=== PATIENT | male | born 1950 | race Caucasian/White ===

== ENCOUNTER 2018-11-03 06:40 | Day surgery (SDC) | payer OTHER ==
[2018-11-02 14:58] LABS: BASOPHILS % (AUTO) 0.9 % (0.0-5.0); EOSINOPHILS % (AUTO) 5.1 % (0.0-8.0); HEMATOCRIT 35.7 % (42-54); MEAN CORPUSCULAR HEMOGLOBIN 33.5 pg (27.0-33.0); MEAN CORPUSCULAR HGB CONC 34.3 g/dL (32.0-36.0); MEAN CORPUSCULAR VOLUME 97.8 fL (79-99); MONOCYTES % (AUTO) 10.5 % (3.0-13.0); NEUTROPHILS % (AUTO) 57.5 % (40.0-77.0); NUCLEATED RED BLOOD CELLS 0.1 % (0.0-0.19); PLATELET COUNT (AUTO) 228 K/uL (130-400); RED BLOOD CELL COUNT(AUTO) 3.65 MIL/uL (4.50-6.20); RED CELL DISTRIBUTION WIDTH 13.7 % (11.0-15.5); WHITE BLOOD COUNT (AUTO) 5.5 K/uL (4.8-10.8)
[2018-11-02 15:00] VITALS: BP 122/60
[~2018-11-03] VITALS: Ht 170.2 cm; Wt 87.5 kg
[2018-11-03] VITALS (16 sets, daily range): BP systolic 97–123; BP diastolic 54–80
[~2018-11-03 06:40] MED LIST: ACET-66 PO; AEC81 PO; ATOR10TA69 PO; CETI10TA57 PO; GABA600T10 PO; LISI10TA7 PO; LORA1TAB3 PO; LORA2TAB2 PO; METO50TA18 PO; NAPR-1023 PO; RANI150T7 PO; SUCR1TAB2 PO; TAMS-1 PO
[2018-11-03] MEDS: CEFAZOLIN SODIUM 1 GM VIAL IVP SCH ×2 (09:00→09:59)
[2018-11-03] MEDS ORDERED: LACTATED RINGERS 1000ML 1,000 ML IV ONE (09:17)
--- NOTE | 2018-11-03 09:36 | NUR ---
POTENTIAL FOR INFECTION: SHAVED RIGHT LEG / KNEE PER BRAD TERRAZAS, FOLLOWED BY WIPING WITH RAMILA: 2% CHLORHEXIDINE GLUCONATE CLOTH PATIENTS PRE-OP SKIN PREP.
[2018-11-03] MEDS ORDERED: SUCCINYLCHOLINE 200MG/10ML SYR ONE ×2 (09:45→09:47)
[2018-11-03] MEDS ORDERED: DEXAMETHASONE SOD PHOSPHATE 10MG/ML 1ML VIAL ONE (09:45)
[2018-11-03] MEDS ORDERED: LIDOCAINE PF 2% 5ML ABBOJECT ONE ×2 (09:45→09:47)
[2018-11-03] MEDS ORDERED: MIDAZOLAM HCL 1 MG/ML 2ML VIAL ONE (09:46)
[2018-11-03] MEDS ORDERED: PROPOFOL 10 MG/ML 20ML VIAL IV ONE (09:46)
[2018-11-03] MEDS ORDERED: GLYCOPYRROLATE 1 MG/5 ML SYRINGE ONE (09:46)
[2018-11-03] MEDS ORDERED: NEOSTIGMINE 5MG/5ML SYR IV ONE (09:46)
[2018-11-03] MEDS ORDERED: ONDANSETRON HCL 4 MG/2 ML VIAL ONE (09:46)
[2018-11-03] MEDS ORDERED: ROCURONIUM 10MG/1ML SYR 10 MG/ML ML ONE (09:46)
[2018-11-03] MEDS ORDERED: FENTANYL CITRATE PF 50 MCG/1 ML 2ML VIAL ONE (09:46)
[2018-11-03] MEDS ORDERED: EPHEDRINE SULFATE 50 MG/ML AMPULE ONE (10:20)
[2018-11-03] MEDS ORDERED: TRAM-355 PO (10:47)
[2018-11-03] MEDS ORDERED: CEPH500B PO (10:47)
[2018-11-03] MEDS ORDERED: MEPERIDINE-PF 25 MG/ML SYG ONE (11:04)
--- NOTE | 2018-11-03 11:45 | NUR ---
POST RECEIVED PT FROM PACU, S/P RIGHT KNEE ARTHROSCOPY, DRESSING TO SITE DRY AND INTACT, NEUROVASCULAR CHECKS WNL. PT AWAKE AND ALERT, DENIED ANY PAIN OR DISCOMFORTS. VS STABLE ON ARRIVAL
--- NOTE | 2018-11-03 12:20 | NUR ---
dc dc instructions given to pt/ pt s spouse with rx x 2, instructed to f/u with dr. hodgson. photo copy of dr. hodgson reviewed and instructed to patients spouse, crutches provided to patient . right knee dressing dry and intact,
--- NOTE | 2018-11-03 12:27 | NUR ---
dc pt dc home via [place], no distress noted. accompanied by spouse, dressing to right knee dry and intact. neurovascular checks wnl
== END 2018-11-03 12:27 | disposition home or self-care (01) ==
LOC: DAH 06:40
PROVIDERS: ATTEND Orthopaedic Surgery
DX: M23.221 Derangement of posterior horn of medial meniscus due to old tear or injury, right knee (principal); M17.11 Unilateral primary osteoarthritis, right knee; M94.261 Chondromalacia, right knee; Z68.31 Body mass index [BMI] 31.0-31.9, adult; Z79.899 Other long term (current) drug therapy; Z98.890 Other specified postprocedural states; G89.29 Other chronic pain; I11.9 Hypertensive heart disease without heart failure; Z98.49 Cataract extraction status, unspecified eye; N40.0 Benign prostatic hyperplasia without lower urinary tract symptoms; K21.9 Gastro-esophageal reflux disease without esophagitis; E78.5 Hyperlipidemia, unspecified; I25.10 Atherosclerotic heart disease of native coronary artery without angina pectoris
CPT/HCPCS: 36415; 80048; 85025; A4606; J0330; J0690; J1100; J2001; J2175; J2250; J2405; J2704; J2710; J3010; J3490; J7120

== ENCOUNTER → 2020-05-05 | Outpatient (CLI) | payer OTHER ==
[~2020-05-05] VITALS: Ht 170.2 cm; Wt 82.6 kg
[~2020-05-05] MED LIST changes: +ACETAMINOPHEN EXTRA STRENGTH 500 MG TABLET ONE; +ASPI-1012 PO; +CEFAZOLIN SODIUM 1 GM VIAL IVP ONE; +CELE100 PO; +CELECOXIB 200 MG CAP ONE; +FAMO20TA8 PO; +FENTANYL CITRATE PF 50 MCG/1 ML 2ML VIAL ONE; +KETOROLAC TROMETHAMINE 15MG/ML ONE; +LACTATED RINGERS 1000ML 1,000 ML IV ONE; +LISI-613 PO; -LISI10TA7 PO; +LORA-192 PO; -NAPR-1023 PO; +OXYC5 PO; +PROPOFOL 10 MG/ML 20ML VIAL IV ONE; +ROCURONIUM 10MG/1ML SYR 10 MG/ML ML ONE; +ROPIVACAINE 0.5% 5MG/ML 30ML IJ ONE; +SUCCINYLCHOLINE CHLORIDE 20 MG/ML 10 ML VIAL ONE; +TRAZADONE PO; +VANCOMYCIN 1.5 GM in SODIUM CHLORIDE 0.9% 250 ML IV SCH
[2020-05-12 07:40] VITALS: BP 123/72
== END | disposition home or self-care (01) ==
LOC: EDSTATUS 09:00 → DAH 10:00 → UNDOADMIN 05-12 07:00 → DAHIP 05-12 07:00 → UNDODISIN 05-12 12:00
PROVIDERS: ATTEND Orthopaedic Surgery
DX: M75.102 Unspecified rotator cuff tear or rupture of left shoulder, not specified as traumatic (principal); Z20.828 Contact with and (suspected) exposure to other viral communicable diseases; M12.812 Other specific arthropathies, not elsewhere classified, left shoulder; G89.29 Other chronic pain; I10 Essential (primary) hypertension; N40.0 Benign prostatic hyperplasia without lower urinary tract symptoms; K21.9 Gastro-esophageal reflux disease without esophagitis; E78.5 Hyperlipidemia, unspecified; Z96.652 Presence of left artificial knee joint; Z96.611 Presence of right artificial shoulder joint
CPT/HCPCS: 87641; U0003; 96365; 96374; A4606; G0378; J0330; J0690; J1885; J2704; J2795; J3010; J3370; J7030; J7050; J7120

== ENCOUNTER 2021-06-03 09:00 | Inpatient (IN) | payer OTHER ==
[~2021-06-03] VITALS: Ht 170.2 cm; Wt 86.6 kg
[~2021-06-03 09:00] MED LIST changes: -ACET-66 PO; -ACETAMINOPHEN EXTRA STRENGTH 500 MG TABLET ONE; -AEC81 PO; -ASPI-1012 PO; -ATOR10TA69 PO; -CEFAZOLIN SODIUM 1 GM VIAL IVP ONE; -CELE100 PO; -CELECOXIB 200 MG CAP ONE; -CETI10TA57 PO; -FAMO20TA8 PO; -FENTANYL CITRATE PF 50 MCG/1 ML 2ML VIAL ONE; -KETOROLAC TROMETHAMINE 15MG/ML ONE; -LACTATED RINGERS 1000ML 1,000 ML IV ONE; -LISI-613 PO; +LISI20TA24 PO; -LORA-192 PO; -LORA1TAB3 PO; -METO50TA18 PO; -OXYC5 PO; -PROPOFOL 10 MG/ML 20ML VIAL IV ONE; -RANI150T7 PO; -ROCURONIUM 10MG/1ML SYR 10 MG/ML ML ONE; -ROPIVACAINE 0.5% 5MG/ML 30ML IJ ONE; -SUCCINYLCHOLINE CHLORIDE 20 MG/ML 10 ML VIAL ONE; -VANCOMYCIN 1.5 GM in SODIUM CHLORIDE 0.9% 250 ML IV SCH
[2021-06-15 09:58] LABS: BASOPHILS % (AUTO) 0.8 % (0.0-5.0); EOSINOPHILS % (AUTO) 1.7 % (0.0-8.0); HEMATOCRIT 37.1 % (42-54); MEAN CORPUSCULAR HEMOGLOBIN 34.1 pg (27.0-33.0); MEAN CORPUSCULAR VOLUME 97.4 fL (79-99); MONOCYTES % (AUTO) 10.6 % (3.0-13.0); NEUTROPHILS % (AUTO) 61.2 % (40.0-77.0); PLATELET COUNT (AUTO) 214 K/uL (130-400); RED BLOOD CELL COUNT(AUTO) 3.81 MIL/uL (4.50-6.20)
[2021-06-15 10:06] LABS: CREATININE 0.9 mg/dL (0.5-1.5); POTASSIUM 3.4 mmol/L (3.5-5.1)
[2021-06-15 10:06] LABS: APPEARANCE,URINE Clear (CLEAR); BILIRUBIN,URINE Negative (NEGATIVE); COLOR,URINE Yellow (YELLOW); GLUCOSE, URINE (UA) Negative (NEGATIVE); KETONES,URINE Negative (NEGATIVE); LEUKOCYTE ESTERASE ,URINE Negative (NEGATIVE); NITRATE,URINE Negative (NEGATIVE); OCCULT BLOOD,URINE Negative (NEGATIVE); PH,URINE 6.5 (5.0-8.0); PROTEIN,URINE Negative (NEGATIVE); UROBILINOGEN,URINE 0.2 mg/dL (0.2-1.0)
[2021-06-15 10:08] LABS: INR 1.06 (0.85-1.15); PROTHROMBIN TIME 11.5 SEC (9.6-11.6)
[2021-06-15 10:10] LABS: PARTIAL THROMBOPLASTIN TIME 34.5 SEC (26.3-35.5)
[2021-06-16 10:12] VITALS: BP 151/83
[2021-06-16] MEDS ORDERED: LORA-192 PO (16:13)
[2021-06-16] MEDS ORDERED: AMLO-257 PO (16:13)
[2021-06-16] MEDS ORDERED: METO100T14 PO (16:13)
[2021-06-16] MEDS ORDERED: FINA5TAB41 PO (16:13)
[2021-06-17] VITALS (25 sets, daily range): BP systolic 114–164; BP diastolic 50–72
[2021-06-17] MEDS ORDERED: LACTATED RINGERS 1000ML 1,000 ML IV ONE (07:40)
[2021-06-17] MEDS ORDERED: VANCOMYCIN 1.5GM/NS 250ML IV SCH ×2 (08:00)
[2021-06-17] MEDS ORDERED: CEFAZOLIN SODIUM 1 GM VIAL IVP ONE (08:00)
[2021-06-17 08:17] LABS: POTASSIUM 3.1 mmol/L (3.5-5.1)
[2021-06-17] MEDS ORDERED: LIDOCAINE HCL-MPF 1% 2ML VIAL IV PRN ×2 (08:30→18:00)
[2021-06-17] MEDS ORDERED: POTASSIUM CHLORIDE 20MEQ/100ML 100 ML IV PRN ×2 (08:30→18:00)
[2021-06-17] MEDS ORDERED: POTASSIUM CHLORIDE 20MEQ/100ML 100 ML IV ONE (08:31)
[2021-06-17] MEDS ORDERED: TRANEXAMIC ACID 1000MG/10ML ONE ×2 (13:38→18:02)
[2021-06-17] MEDS ORDERED: CEFAZOLIN SODIUM 1 GM VIAL ONE (13:48)
[2021-06-17] MEDS ORDERED: ROPIVACAINE 0.5% 5MG/ML 30ML IJ ONE (13:53)
[2021-06-17] MEDS ORDERED: ROCURONIUM 10MG/1ML SYR 10 MG/ML ML ONE (14:08)
[2021-06-17] MEDS ORDERED: PROPOFOL 10 MG/ML 20ML VIAL IV ONE (14:08)
[2021-06-17] MEDS ORDERED: SUCCINYLCHOLINE CHLORIDE 20 MG/ML 10 ML VIAL ONE (14:08)
[2021-06-17] MEDS ORDERED: LIDOCAINE PF 100MG/5ML (2%) SYRINGE 5ML ONE (14:08)
[2021-06-17] MEDS ORDERED: EPHEDRINE SULFATE 50 MG/ML AMPULE ONE ×2 (14:39→15:55)
[2021-06-17] MEDS ORDERED: VANCOMYCIN 1G VIAL ONE (14:49)
[2021-06-17] MEDS ORDERED: CEFAZOLIN SODIUM 1 GM VIAL IRRIG ONE (15:06)
[2021-06-17] MEDS ORDERED: PHENYLEPHRINE HCL 10 MG/ML 1ML VIAL IV ONE (15:54)
[2021-06-17] MEDS ORDERED: GLYCOPYRROLATE 1 MG/5 ML SYRINGE ONE (17:08)
[2021-06-17] MEDS ORDERED: ONDANSETRON 4MG INJ ONE (17:08)
[2021-06-17] MEDS ORDERED: NEOSTIGMINE 5MG/5ML SYR IV ONE (17:08)
[2021-06-17] MEDS ORDERED: METOPROLOL TARTRATE 1 MG/ML 5ML VIAL IV ONE (17:16)
[2021-06-17] MEDS ORDERED: CALCIUM CARB 500MG PO PRN (18:00)
[2021-06-17] MEDS ORDERED: TRAMADOL HCL 50 MG TABLET PO PRN (18:00)
[2021-06-17] MEDS ORDERED: ONDANSETRON 4MG INJ IVP PRN (18:00)
[2021-06-17] MEDS ORDERED: KETOROLAC 15MG/ML VIAL (15MG/ML) IV PRN (18:00)
[2021-06-17] MEDS ORDERED: POTASSIUM CHLORIDE 10% ELIXIR 20 MEQ/15 ML UDCUP PO PRN (18:00)
[2021-06-17] MEDS ORDERED: FE FUMARATE/FA/MV, MIN COMB#15 1 TAB PO PRN (18:00)
[2021-06-17] MEDS ORDERED: OXYCODONE HCL 5 MG TAB PO PRN (18:00)
[2021-06-17] MEDS ORDERED: 0.9% NACL 250ML IV SCH (18:00)
[2021-06-17] MEDS ORDERED: DiphenhydrAMINE HCL 50 MG/ML VIAL IVP PRN (18:00)
[2021-06-17] MEDS ORDERED: VANCOMYCIN PROTOCOL PER PHARMACY IV SCH (18:00)
[2021-06-17] MEDS ORDERED: KCL 20 MEQ ERTAB PO PRN (18:00)
[2021-06-17] MEDS ORDERED: LORAZEPAM 2 MG TABLET PO PRN (19:30)
[2021-06-17] MEDS: TRAZODONE HCL 50 MG TAB PO SCH (20:25)
[2021-06-17] MEDS: SUCRALFATE 1 GM TABLET PO SCH (20:25)
[2021-06-17] MEDS: ASPIRIN 81 MG EC TAB PO SCH (20:25)
[2021-06-17] MEDS: GABAPENTIN 300 MG CAPSULE PO SCH (20:25)
[2021-06-17] MEDS: CELECOXIB 200 MG CAP PO SCH (20:26)
[2021-06-17] MEDS: TAMSULOSIN HCL 0.4 MG CAP.ER.24H PO SCH (20:26)
[2021-06-17] MEDS: LISINOPRIL 20 MG TABLET PO SCH (20:27)
[2021-06-17] MEDS: METOPROLOL TARTRATE 50 MG TAB PO SCH (20:27)
[2021-06-17] MEDS: ACETAMINOPHEN 500 MG TABLET PO SCH (20:27)
[2021-06-17] MEDS: 0.9%NACL 1000ML 1,000 ML IV SCH (20:32)
[2021-06-17] MEDS: CEFAZOLIN SODIUM 1 GM VIAL IVP SCH (22:54)
[2021-06-18] VITALS (9 sets, daily range): BP systolic 118–148; BP diastolic 57–78
[2021-06-18] MEDS: ACETAMINOPHEN 500 MG TABLET PO SCH ×3 (02:24→21:18)
[2021-06-18] MEDS: 0.9%NACL 1000ML 1,000 ML IV SCH ×2 (04:00→13:12)
[2021-06-18] MEDS: OXYCODONE HCL 5 MG TAB PO PRN ×2 (04:43→09:42)
[2021-06-18 05:50] LABS: HEMATOCRIT 28.9 % (42-54); MEAN CORPUSCULAR HEMOGLOBIN 33.6 pg (27.0-33.0); MEAN CORPUSCULAR HGB CONC 33.6 g/dL (32.0-36.0); RED BLOOD CELL COUNT(AUTO) 2.89 MIL/uL (4.50-6.20); RED CELL DISTRIBUTION WIDTH 12.3 % (11.0-15.5); WHITE BLOOD COUNT (AUTO) 7.6 K/uL (4.8-10.8)
[2021-06-18 06:08] LABS: CREATININE 0.9 mg/dL (0.5-1.5); POTASSIUM 3.7 mmol/L (3.5-5.1)
[2021-06-18] MEDS: CEFAZOLIN SODIUM 1 GM VIAL IVP SCH (06:17)
[2021-06-18] MEDS: LORAZEPAM 1 MG TABLET PO SCH (09:00)
[2021-06-18] MEDS: FINASTERIDE 5 MG TABLET PO SCH (09:41)
[2021-06-18] MEDS: AMLODIPINE 5 MG TAB PO SCH (09:41)
[2021-06-18] MEDS: POLYETHYLENE GLYCOL 3350 17 GM POWD.PACK PO SCH (09:41)
[2021-06-18] MEDS: CELECOXIB 200 MG CAP PO SCH ×2 (09:41→21:17)
[2021-06-18] MEDS: GABAPENTIN 300 MG CAPSULE PO SCH ×3 (09:41→21:16)
[2021-06-18] MEDS: ASPIRIN 81 MG EC TAB PO SCH ×2 (09:41→21:17)
[2021-06-18] MEDS: SUCRALFATE 1 GM TABLET PO SCH ×3 (09:41→21:17)
[2021-06-18] MEDS: VANCOMYCIN KIT 1 GM/250 ML IV.KIT IV SCH ×2 (09:42→21:18)
[2021-06-18] MEDS ORDERED: VANCOMYCIN KIT 1 GM/250 ML IV.KIT IV SCH (15:00)
[2021-06-18] MEDS: LISINOPRIL 20 MG TABLET PO SCH (21:16)
[2021-06-18] MEDS: METOPROLOL TARTRATE 50 MG TAB PO SCH (21:17)
[2021-06-18] MEDS: TRAZODONE HCL 50 MG TAB PO SCH (21:17)
[2021-06-18] MEDS: TAMSULOSIN HCL 0.4 MG CAP.ER.24H PO SCH (21:17)
[2021-06-19 04:35] VITALS: BP 138/72
[2021-06-19] MEDS: ACETAMINOPHEN 500 MG TABLET PO SCH ×2 (04:56→14:00)
[2021-06-19 07:59] VITALS: BP 140/73
[2021-06-19] MEDS: AMLODIPINE 5 MG TAB PO SCH (08:59)
[2021-06-19] MEDS: ASPIRIN 81 MG EC TAB PO SCH (08:59)
[2021-06-19] MEDS: GABAPENTIN 300 MG CAPSULE PO SCH ×2 (09:00→14:00)
[2021-06-19] MEDS: CELECOXIB 200 MG CAP PO SCH (09:00)
[2021-06-19] MEDS: FINASTERIDE 5 MG TABLET PO SCH (09:00)
[2021-06-19] MEDS: POLYETHYLENE GLYCOL 3350 17 GM POWD.PACK PO SCH (09:01)
[2021-06-19] MEDS: SUCRALFATE 1 GM TABLET PO SCH ×2 (09:05→14:00)
[2021-06-19] MEDS: LORAZEPAM 1 MG TABLET PO SCH (09:19)
[2021-06-19 11:17] VITALS: BP 132/89
[2021-06-19] MEDS ORDERED: ACET-66 PO (13:33)
[2021-06-19] MEDS ORDERED: TRAM50TA4 PO ×2 (13:33→13:56)
[2021-06-19] MEDS ORDERED: ACET-2743 PO (13:56)
[2021-06-19 16:00] VITALS: BP 128/86
[2021-06-20] MEDS ORDERED: BISACODYL 10 MG SUPP.RECT RC PRN (18:00)
== END 2021-06-19 18:30 | disposition home health service (06) | DRG 483 ==
LOC: EDSTATUS 06-14 09:00 → DAHIP 06-17 07:15 → 3BH 06-17 18:37
PROVIDERS: ADMIT Orthopaedic Surgery; ATTEND Orthopaedic Surgery
PROC: 3E0T33Z Introduction of Anti-inflammatory into Peripheral Nerves and Plexi, Percutaneous Approach (ICD-10-PCS; 2021-06-17)
PROC: 0RRK00Z Replacement of Left Shoulder Joint with Reverse Ball and Socket Synthetic Substitute, Open Approach (ICD-10-PCS; principal; 2021-06-17 14:06)
PROC: 3E0T3BZ Introduction of Anesthetic Agent into Peripheral Nerves and Plexi, Percutaneous Approach (ICD-10-PCS; 2021-06-17 14:06)
DX: M75.102 Unspecified rotator cuff tear or rupture of left shoulder, not specified as traumatic (principal); D64.9 Anemia, unspecified; F41.9 Anxiety disorder, unspecified; G89.29 Other chronic pain; J30.9 Allergic rhinitis, unspecified; Z20.822 Contact with and (suspected) exposure to COVID-19; K21.9 Gastro-esophageal reflux disease without esophagitis; I11.9 Hypertensive heart disease without heart failure; I25.10 Atherosclerotic heart disease of native coronary artery without angina pectoris; M12.812 Other specific arthropathies, not elsewhere classified, left shoulder; N40.0 Benign prostatic hyperplasia without lower urinary tract symptoms; E78.5 Hyperlipidemia, unspecified; Z96.611 Presence of right artificial shoulder joint; Z96.652 Presence of left artificial knee joint; Z87.891 Personal history of nicotine dependence; Z88.8 Allergy status to other drugs, medicaments and biological substances
CPT/HCPCS: 36415; 73030; 80048; 81003; 85025; 85027; 85610; 85730; 87088; 87635; 87641; 97039; A4565; C1776; G0378; J0330; J0690; J2001; J2370; J2405; J2704; J2710; J2795; J3370; J3480; J3490; J7030; J7050; J7120